=== PATIENT | female | born 1970 | race Caucasian/White ===

== ENCOUNTER 2018-09-06 10:07 | Inpatient (IN) | payer BC, SELFPAY ==
[2018-09-06 10:08] VITALS: BP 141/85; PULSE 79; RESP 16; TEMP 36.9; O2SAT 99; BMI 42.9
--- NOTE | 2018-09-06 10:25 | ED.DCSUM_ITS ---
- ER Visit Summary Date of Service: 09/06/18 Chief Complaint: Cat bite History of Present Illness: The patient is a 48 F who sustained a cat bite 3 days ago to the left middle finger. She was seen at an urgent care and was placed on Augmentin and topical Bactroban. She states that swelling and erythema are getting worse. She states that the redness is extending into her hand. She also complains of some pain in the left axilla. She denies any fevers. The cat bite wounds has some clear drainage coming out of it. Patient is a diabetic. Physical Examination: Vital signs reviewed. Left hand exam reveals erythema and swelling extending at the level hand from the third digit. There are multiple cat bite wounds on the radial and ulnar side of the finger. There is no tenderness to palpation of the flexor tendon. She does have some tenderness in the left axilla as well. Test Results: Laboratory studies are normal except for glucose of 175. Left hand x-ray reveals no foreign bodies Emergency Department Course and Treatment: Patient will be treated with IV Unasyn. I discussed this with Dr. Miller who states that she will see the patient in consult. If it is not better in the morning she will take the patient to the operating room. Patient will be made n.p.o. after midnight. Patient will be admitted to the hospitalist. Treatment Plan: [] Disposition: Admit Impression: Cat bite?left hand, left hand cellulitis, failure of outpatient therapy This note was generated with [employer] dictation software. It may contain incorrect words, spelling, and punctuation that were not noted in review of the chart prior to signing ED Disposition - Plan for ED Patient: Chief Complaint: Bite Referrals: Yamil Arreguin MD [Primary Care Provider] -
--- NOTE | 2018-09-06 10:47 | RAD_ITS ---
STUDY: X-RAY - LEFT HAND REASON FOR EXAM: Female, 48 years old. Pain status post cat bite TECHNIQUE: 3 view(s) of the hand. COMPARISON: None. FINDINGS: Normal radiocarpal articulation. Normal distal radioulnar joint. Normal visualized carpal bones. Normal carpal articulations Normal carpometacarpal articulation of the thumb. Normal second through fifth carpometacarpal joints. Normal metacarpi. Normal metacarpophalangeal joint of the thumb. Normal interphalangeal joint of the thumb. Normal proximal and distal phalanges of the thumb. Normal metacarpophalangeal joints of the second through fifth fingers. Normal proximal and distal interphalangeal joints of the second through fifth fingers. Normal phalanges of the second through fifth fingers. There is soft tissue edema about the second digit. On the AP view there is a subtle focus of lucency which may represent a puncture wound or 4 mm abscess. There is no visualized foreign body or fracture. RAD/Hand Min 3 Views IMPRESSION: Tissue edema AP view, subtle visualized puncture or 4 mm abscess or focal soft tissue swelling suggested on the lateral side of the proximal third digit. Cannot exclude small focal superficial abscess. Electronically Signed: Renetta Dinh MD at 11:45 EST Tel , Service support ,
[2018-09-06 10:48] LABS: Erythrocyte Sedimentation Rate 14 mm/hr (0-20)
[2018-09-06 10:50] LABS: Absolute Lymphocyte Count 1.71 X10^3/ul (0.83-4.51); Absolute Neutrophil Count 6.2 X10^3/uL (2.0-7.7); Basophil# 0.02 X10^3/uL; Basophil% 0.2 % (0-1); Eosinophil# 0.13 X10^3/uL; Eosinophils% 1.5 % (0-5); Hematocrit 39.9 % (37-47); Hemoglobin 12.5 g/dl (12.0-15.0); Lymphocyte # 1.71 X10^3/ul (4.0); Lymphocyte % 19.7 % (19-41); Mean Corp Hgb Conc 31.3 g/gl (32-36); Mean Corpuscular Hgb 26.2 pg (27.0-32.0); Mean Corpuscular Volume 83.6 fL (81-99); Mean Platelet Vol. 9.8 fl (6.2-12.0); Monocyte# 0.59 X10^3/uL; Monocyte% 6.8 % (0-10); Neutrophil % 71.6 % (47-70); Platelet Count 274 K/mm3 (150-450); RBC Distribution Width CV 14.4 % (11.6-14.6); RBC Distribution Width SD 44.4 fl (35.1-43.9); Red Blood Count 4.77 M/mm3 (4.2-5.4); White Blood Count 8.7 K/mm3 (4.4-11.0)
[2018-09-06 10:51] LABS: POSITIVE COUNT NO; POSITIVE DIFFERENTIAL NO; POSITIVE MORPHOLOGY NO
[2018-09-06 10:57] LABS: Anion Gap 6 (5-15); BUN 11 mg/dL (7-18); Calcium,Total 8.7 mg/dL (8.5-10.1); Chloride 107 mmol/L (98-107); Creatinine, Serum 0.65 mg/dL (0.55-1.02); EST Glomerular Filtration Rate 104 mL/min (>60); Est Glom Filt Rate - Afr Amer 126 mL/min (>60); Estimated Creatinine Clearance 83.71 ml/min; Glucose 175 mg/dL (74-106); Potassium 4.4 mmol/L (3.5-5.1); Sodium Level 141 mmol/L (136-145)
[2018-09-06 12:08] VITALS: BMI 43.6
[2018-09-06 12:17] VITALS: BP 152/92; PULSE 75; RESP 16; TEMP 36.7; O2SAT 100
[2018-09-06 13:06] LABS: Bedside Glucose 136 mg/dL (70-110)
[2018-09-06] MEDS: oxyCODONE 5 MG Tablet PO ×3 (13:32→19:03)
--- NOTE | 2018-09-06 13:46 | HP.PCM_ITS ---
Problem List (1) Type 2 diabetes mellitus Status: Chronic (2) Obesity Status: Chronic (3) Cat bite of hand Status: Acute History of Present Illness Date of Admission: 09/06/18 Chief Complaint: Cat bite left middle finger. The patient is a 48 year old F who presents to the Emergency Room due to cat bite of the left hand middle finger which occurred on Friday. Patient was seen at urgent care and placed on Augmentin and topical Bactroban. She reports increased swelling and erythema since that time. Patient reports a small amount of clear fluid draining from puncture sites. She denies fever, chills. She reports left axillary enlarged lymph node with tenderness which began after Bite. She reports she received her tetanus vaccination on Friday at urgent care. She reports significant pain in the left hand. Denies other associated complaints. She has a past medical history of type 2 diabetes mellitus. Past Medical History Past Medical History (Chronic Problems): Chronic Problems Type 2 diabetes mellitus (Chronic) Obesity (Chronic) Allergies codeine phosphate [From Tylenol-Codeine #3] Allergy (Verified 09/06/18 10:12) Hives progesterone Allergy (Verified 09/06/18 10:12) Hives Home Medications: Ambulatory Orders Medication Instructions Recorded Metformin HCl [Glucophage] 500 mg PO BIDCM 12/04/15 Amox/Clavulanate Tablet [Augmentin 875 mg PO Q12H 09/06/18 Tablet] Mupirocin [Bactroban] 1 applic TOPICAL TID 09/06/18 Sitagliptin Phosphate [Januvia] 100 mg PO QHS 09/06/18 Surgical History: - - Tonsillectomy, Lasik eye surgery, septoplasty. Lives: With Family Smoking Status: Never smoker Alcohol: None Drugs: None - *Family History Maternal History Items: - - following seven-year jones with cancer including renal, lymphoma. Paternal History Items: - - Denies known paternal cardiac history. Review of Systems Constitutional: Denies: Chills, Fever, Weight Change HEENT: Denies: Head Aches, Sinus Congestion, Sinus Drainage Cardiovascular: Denies: Chest Pain, Palpitations Respiratory: Denies: Cough, Shortness of breath at rest, Sputum production Gastrointestinal: Denies: Abdominal Pain, Nausea, Vomiting Genitourinary: Denies: Dysuria Musculoskeletal: Denies: Joint Pain, Joint Tenderness Skin: Reports: - - Left hand middle finger wounds. Neurological: Denies: Numbness, Tingling, Focal weakness Psychiatric: Denies: Anxiety, Depression, Homicidal Ideations, Suicidal Ideations Hematologic/ Lymphatic: Denies: Easy Bruising, Easy Bleeding VTE Information - Inpt Only VTE Present on Admission: No VTE Mechan Device Prophylaxis: None Reason prophylaxis not ordered:: Treatment Not Indicated Patient Problems: Active and Suspected Problems Cat bite of hand (Acute) - Physical Exam General: Alert, Oriented x3, Cooperative HEENT: Atraumatic, PERRLA, EOMI, Normocephalic Neck: Supple, No JVD, Negative Carotid Bruits Lungs: Clear to auscultation, Normal air movement Cardiovascular: Regular rate, Regular Rhythm, Normal S1, Normal S2, No murmurs Abdomen: Bowel Sounds Present, Soft, Non Tender, Non-Distended Extremities: No edema, Capillary Refill Less than 3 Seconds, - - Enlarged lymph node left axillary Skin: - - Left hand middle finger with puncture wounds x2 and abrasions secondary to cat bite. Surrounding erythema. Musculoskeletal: No Tenderness to Palpation of Joints or Extremities Neurological: Cranial nerves II-XII grossly intact Psych/Mental Status: Normal Affect, Appropriate Vital Signs Temp Pulse Resp BP Pulse Ox 98.1 F 75 16 152/92 H 100 09/06/18 12:17 09/06/18 12:17 09/06/18 12:17 09/06/18 12:17 09/06/18 12:17 Oxygen Delivery Method Room Air Weight: 238 lb 6 oz Body Mass Index (BMI) 43.6 Laboratory Tests Past 24 Hrs 09/06/18 09/06/18 10:41 10:41 WBC 8.7 RBC 4.77 Hgb 12.5 Hct 39.9 MCV 83.6 MCH 26.2 L MCHC 31.3 L RDW 14.4 RDW Differential 44.4 H Plt Count 274 MPV 9.8 Immature Gran % (Auto) 0.200 Neut % (Auto) 71.6 H Lymph % (Auto) 19.7 [place] % (Auto) 6.8 Eos % (Auto) 1.5 Baso % (Auto) 0.2 Absolute Neuts (auto) 6.2 Absolute Lymphs (auto) 1.71 Total Counted Not Reportable ESR 14 Sodium 141 Potassium 4.4 Chloride 107 Carbon Dioxide 28.0 Anion Gap 6 BUN 11 Creatinine 0.65 Estim Creat Clear Calc 83.71 Est GFR (MDRD) Af Amer 126 Est GFR (MDRD) Non-Af 104 BUN/Creatinine Ratio 17.0 Glucose 175 H Calcium 8.7 POC Glucose 09/06/18 12:53 POC Glucose 136 H Assessment/Plan All Active Problems Cat bite of hand (Acute) 1. Left hand cellulitis due to cat bite of the left hand middle finger, failed outpatient antibiotic therapy with [id number] left hand showed tissue edema, some double puncture or 4 mm abscess versus soft tissue swelling on the lateral side of the proximal third digit. Cannot exclude small superficial abscess. Dr. Ramirez consulted. NPO after midnight. IV Unasyn. PRN pain regimen. Patient reports she did receive her tetanus booster at urgent care on Friday. Elevate LUE. 2. Type 2 diabetes mellitus-hold home metformin, Januvia, pioglitazone regimen. Accu-Cheks before meals at bedtime with sliding scale insulin. 3. Obesity-encouraged diet lifestyle medications. 4. Elevated blood pressure-systolic 140-150 on admission. Continue to monitor. DVT prophylaxis- not indicated, low risk. This patient was seen by Lorena Arauz NP-Esau under the supervision of Dr. Gee.
[2018-09-06] MEDS: Insulin Lispro 100 UNIT/ML INSULN.PEN SC ×2 (17:17→21:30)
[2018-09-06 17:20] LABS: Bedside Glucose 195 mg/dL (70-110)
--- NOTE | 2018-09-06 18:07 | NURSING ---
Pt did become nauseated around 1700 when she got up to the bathroom. She did vomit in the trash can while using the bathroom. Obtained order for Zofran for pt if needed.
[2018-09-06] MEDS: Ondansetron 4 MG/2 ML Vial IV (19:25)
[2018-09-06 21:40] VITALS: BP 126/71; PULSE 87; RESP 18; TEMP 36.7; O2SAT 98
[2018-09-06] MEDS: 0.9% Normal Saline 1,000 ML 100 ML IV (23:54)
[2018-09-07 00:26] LABS: Bedside Glucose 220 mg/dL (70-110)
[2018-09-07] MEDS: Acetaminophen 325 MG Tablet 650 MG PO ×2 (01:16→08:45)
[2018-09-07 01:25] VITALS: BP 128/80; PULSE 77; RESP 18; TEMP 36.3; O2SAT 98
[2018-09-07] MEDS: Insulin Lispro 100 UNIT/ML INSULN.PEN SC (05:59)
[2018-09-07 06:06] LABS: Bedside Glucose 170 mg/dL (70-110)
[2018-09-07 06:10] LABS: Absolute Lymphocyte Count 2.06 X10^3/ul (0.83-4.51); Absolute Neutrophil Count 5.7 X10^3/uL (2.0-7.7); Basophil# 0.03 X10^3/uL; Basophil% 0.4 % (0-1); Eosinophil# 0.16 X10^3/uL; Eosinophils% 1.9 % (0-5); Hematocrit 39.7 % (37-47); Hemoglobin 12.5 g/dl (12.0-15.0); Lymphocyte # 2.06 X10^3/ul (4.0); Lymphocyte % 24.5 % (19-41); Mean Corp Hgb Conc 31.5 g/gl (32-36); Mean Corpuscular Hgb 26.6 pg (27.0-32.0); Mean Corpuscular Volume 84.5 fL (81-99); Mean Platelet Vol. 10.9 fl (6.2-12.0); Monocyte# 0.46 X10^3/uL; Monocyte% 5.5 % (0-10); Neutrophil # 5.69 X10^3/uL (2.7-7.7); Neutrophil % 67.5 % (47-70); Platelet Count 288 K/mm3 (150-450); RBC Distribution Width CV 14.5 % (11.6-14.6); White Blood Count 8.4 K/mm3 (4.4-11.0)
[2018-09-07 06:14] LABS: POSITIVE COUNT NO; POSITIVE DIFFERENTIAL NO; POSITIVE MORPHOLOGY NO
[2018-09-07 08:40] VITALS: BP 135/80; PULSE 75; RESP 18; TEMP 36.4; O2SAT 98
[2018-09-07] MEDS: 0.9% Normal Saline 1,000 ML 100 ML IV (08:48)
[2018-09-07 09:15] LABS: Hemoglobin A1c 8.3 % (4.2-6.3)
--- NOTE | 2018-09-07 09:44 | PN_ITS ---
Patient Problems: Active and Suspected Problems Cat bite of hand (Acute) Subjective: Patient seen and examined. Notes improvement in pain, swelling and erythema of left middle finger and hand. Denies fever, chills. Notes improvement in left axillary lymphadenopathy as well. - Physical Exam General: Alert, Oriented x3, Cooperative HEENT: Atraumatic, PERRLA, EOMI, Normocephalic Neck: Supple, No JVD, Negative Carotid Bruits Lungs: Clear to auscultation, Normal air movement Cardiovascular: Regular rate, Regular Rhythm, Normal S1, Normal S2, No murmurs Abdomen: Bowel Sounds Present, Soft, Non Tender Extremities: No clubbing, No cyanosis, No edema, Capillary Refill Less than 3 Seconds, - - Enlarged lymph node left axillary Skin: No rashes, No breakdown, - - Left hand middle finger with puncture wounds x2 and abrasions secondary to cat bite. Surrounding erythema improved. Musculoskeletal: No Tenderness to Palpation of Joints or Extremities Neurological: Cranial nerves II-XII grossly intact, Neuro grossly intact Psych/Mental Status: Normal Affect, Appropriate Vital Signs Temp Pulse Resp BP Pulse Ox 97.4 F L 77 18 128/80 H 98 09/07/18 01:25 09/07/18 01:25 09/07/18 01:25 09/07/18 01:25 09/07/18 01:25 Oxygen Delivery Method Room Air Weight: 238 lb 6 oz Body Mass Index (BMI) 43.6 Intake and Output for Last 24 Hours 09/05/18 09/06/18 09/07/18 23:59 23:59 23:59 Intake Total 1187 / 1187 631 / 631 Balance 1187 / 1187 631 / 631 Laboratory Tests Past 24 Hrs 09/06/18 09/06/18 09/07/18 10:41 10:41 05:42 WBC 8.7 8.4 RBC 4.77 4.70 Hgb 12.5 12.5 Hct 39.9 39.7 MCV 83.6 84.5 MCH 26.2 L 26.6 L MCHC 31.3 L 31.5 L RDW 14.4 14.5 RDW Differential 44.4 H 44.0 H Plt Count 274 288 MPV 9.8 10.9 Immature Gran % (Auto) 0.200 0.200 Neut % (Auto) 71.6 H 67.5 Lymph % (Auto) 19.7 24.5 [place] % (Auto) 6.8 5.5 Eos % (Auto) 1.5 1.9 Baso % (Auto) 0.2 0.4 Absolute Neuts (auto) 6.2 5.7 Absolute Lymphs (auto) 1.71 2.06 Total Counted Not Reportable Not Reportable ESR 14 Sodium 141 Potassium 4.4 Chloride 107 Carbon Dioxide 28.0 Anion Gap 6 BUN 11 Creatinine 0.65 Estim Creat Clear Calc 83.71 Est GFR (MDRD) Af Amer 126 Est GFR (MDRD) Non-Af 104 BUN/Creatinine Ratio 17.0 Glucose 175 H Hemoglobin A1c Calcium 8.7 09/07/18 05:42 WBC RBC Hgb Hct MCV MCH MCHC RDW RDW Differential Plt Count MPV Immature Gran % (Auto) Neut % (Auto) Lymph % (Auto) [place] % (Auto) Eos % (Auto) Baso % (Auto) Absolute Neuts (auto) Absolute Lymphs (auto) Total Counted ESR Sodium Potassium Chloride Carbon Dioxide Anion Gap BUN Creatinine Estim Creat Clear Calc Est GFR (MDRD) Af Amer Est GFR (MDRD) Non-Af BUN/Creatinine Ratio Glucose Hemoglobin A1c 8.3 H Calcium POC Glucose 09/07/18 09/06/18 09/06/18 05:58 21:27 17:03 POC Glucose 170 H 220 H 195 H 09/06/18 12:53 POC Glucose 136 H Medical Necessity - Tobacco Use Smoking Status: Never smoker Assessment/Plan All Active Problems Cat bite of hand (Acute) 1. Left hand cellulitis due to cat bite of the left hand middle finger, failed outpatient antibiotic therapy with [id number] left hand showed tissue edema, some double puncture or 4 mm abscess versus soft tissue swelling on the lateral side of the proximal third digit. Cannot exclude small superficial abscess. No abscess is felt on examination. Dr. Ramirez consulted, pending. IV Unasyn. PRN pain regimen. Patient reports she did receive her tetanus booster at urgent care on Friday. Elevate LUE. 2. Type 2 diabetes mellitus-hold home metformin, Januvia, pioglitazone regimen. Accu-Cheks before meals at bedtime with sliding scale insulin. 3. Obesity-encouraged diet lifestyle medications. 4. Elevated blood pressure-suspect secondary to pain on admission. Resolved. DVT prophylaxis- not indicated, low risk. This patient was seen by MACY Reece under the supervision of Dr. Villarreal.
--- NOTE | 2018-09-07 09:56 | PCM.CONS.GEN ---
Reason for Consult Date of Consultation: 09/07/18 Reason for Consultation: left hand cat bite History of Present Illness: The patient is a 48 year old F with cat bite ast Friday, she was placed on Augmentin but she is noted that her finger today has become more swollen and painful and she came to the ER. Labs showed a normal white blood cell count. X-ray of the left hand showed tissue edema and a subtle visualized puncture. Pt admitted, overnight IV antibiotics and seen this am. States much improved this am, can bend middle finger with minimal discomfort, although not completely, denies other pain in other joints. states swelling under ipsilateral armpit from lymph node- internal medicine aware. [] Past Medical History Past Medical History (Chronic Problems): Chronic Problems Type 2 diabetes mellitus (Chronic) Obesity (Chronic) Allergies codeine phosphate [From Tylenol-Codeine #3] Allergy (Verified 09/06/18 10:12) Hives progesterone Allergy (Verified 09/06/18 10:12) Hives Home Medications: Ambulatory Orders Medication Instructions Recorded Metformin HCl [Glucophage] 500 mg PO BIDCM 12/04/15 Amox/Clavulanate Tablet [Augmentin 875 mg PO Q12H 09/06/18 Tablet] Mupirocin [Bactroban] 1 applic TOPICAL TID 09/06/18 Pioglitazone HCl 45 mg PO DAILY 09/06/18 Pioglitazone [Actos] 45 mg PO DAILY 09/06/18 Sitagliptin Phosphate [Januvia] 100 mg PO QHS 09/06/18 Surgical History: - - Tonsillectomy, Lasik eye surgery, septoplasty. Lives: With Family Smoking Status: Never smoker Alcohol: None Drugs: None - *Family History Maternal History Items: - - following seven-year jones with cancer including renal, lymphoma. Paternal History Items: - - Denies known paternal cardiac history. Review of Systems Constitutional: Denies: Chills, Fever, Weight Change HEENT: Denies: Head Aches, Sinus Congestion, Sinus Drainage Cardiovascular: Denies: Chest Pain, Palpitations Respiratory: Denies: Cough, Shortness of breath at rest, Sputum production Gastrointestinal: Denies: Abdominal Pain, Nausea, Vomiting Genitourinary: Denies: Dysuria Musculoskeletal: Reports: Hand Pain. Denies: Joint Pain, Joint Tenderness Skin: Denies: Rash, Wounds Neurological: Denies: Numbness, Tingling, Focal weakness Psychiatric: Denies: Anxiety, Depression, Homicidal Ideations, Suicidal Ideations Hematologic/ Lymphatic: Denies: Easy Bruising, Easy Bleeding Patient Problems: Active and Suspected Problems Cat bite of hand (Acute) - Physical Exam General: Alert, Oriented x3, Cooperative HEENT: Atraumatic, PERRLA, EOMI, Normocephalic Neck: Supple, No JVD, Negative Carotid Bruits Lungs: Clear to auscultation, Normal air movement Cardiovascular: Regular rate, No murmurs Abdomen: Bowel Sounds Present, Soft, Non Tender Extremities: No edema, Capillary Refill Less than 3 Seconds Skin: No rashes, No breakdown Musculoskeletal: Tenderness - decreased erythema (marked out yesterday rhiannon), increased ROM middle finger, no fluctuence, 2 bite scott with scabs slight erythema Neurological: Cranial nerves II-XII grossly intact Psych/Mental Status: Normal Affect, Appropriate Vital Signs Temp Pulse Resp BP Pulse Ox 97.4 F L 77 18 128/80 H 98 09/07/18 01:25 09/07/18 01:25 09/07/18 01:25 09/07/18 01:25 09/07/18 01:25 Oxygen Delivery Method Room Air Weight: 238 lb 6 oz Body Mass Index (BMI) 43.6 Intake and Output for Last 24 Hours 09/05/18 09/06/18 09/07/18 23:59 23:59 23:59 Intake Total 1187 / 1187 631 / 631 Balance 1187 / 1187 631 / 631 Laboratory Tests Past 24 Hrs 09/06/18 09/06/18 09/07/18 10:41 10:41 05:42 WBC 8.7 8.4 RBC 4.77 4.70 Hgb 12.5 12.5 Hct 39.9 39.7 MCV 83.6 84.5 MCH 26.2 L 26.6 L MCHC 31.3 L 31.5 L RDW 14.4 14.5 RDW Differential 44.4 H 44.0 H Plt Count 274 288 MPV 9.8 10.9 Immature Gran % (Auto) 0.200 0.200 Neut % (Auto) 71.6 H 67.5 Lymph % (Auto) 19.7 24.5 [place] % (Auto) 6.8 5.5 Eos % (Auto) 1.5 1.9 Baso % (Auto) 0.2 0.4 Absolute Neuts (auto) 6.2 5.7 Absolute Lymphs (auto) 1.71 2.06 Total Counted Not Reportable Not Reportable ESR 14 Sodium 141 Potassium 4.4 Chloride 107 Carbon Dioxide 28.0 Anion Gap 6 BUN 11 Creatinine 0.65 Estim Creat Clear Calc 83.71 Est GFR (MDRD) Af Amer 126 Est GFR (MDRD) Non-Af 104 BUN/Creatinine Ratio 17.0 Glucose 175 H Hemoglobin A1c Calcium 8.7 09/07/18 05:42 WBC RBC Hgb Hct MCV MCH MCHC RDW RDW Differential Plt Count MPV Immature Gran % (Auto) Neut % (Auto) Lymph % (Auto) [place] % (Auto) Eos % (Auto) Baso % (Auto) Absolute Neuts (auto) Absolute Lymphs (auto) Total Counted ESR Sodium Potassium Chloride Carbon Dioxide Anion Gap BUN Creatinine Estim Creat Clear Calc Est GFR (MDRD) Af Amer Est GFR (MDRD) Non-Af BUN/Creatinine Ratio Glucose Hemoglobin A1c 8.3 H Calcium POC Glucose 09/07/18 09/06/18 09/06/18 05:58 21:27 17:03 POC Glucose 170 H 220 H 195 H 09/06/18 12:53 POC Glucose 136 H Assessment/Plan All Active Problems Cat bite of hand (Acute) left middle finger cat bite improved on unasyn no fluctuence on exam, clinically significantly improved- based on markings from yesterdays cellulitis and patient has good ROM no need for surgery today, may eat discussed if sites of bite themselves worsen, may need intervention in the future, but at this time clinically improved and surgery not indicated follow up as outpatient one week call [facility] [phone]
--- NOTE | 2018-09-07 10:14 | DCINST_ITS ---
- Discharge Diagnoses Current Active Problems: Current Active and Chronic Problems Type 2 diabetes mellitus (Chronic) Obesity (Chronic) Cat bite of hand (Acute) You will use the following diet at home:: Calorie/Carbohydrate Controlled (specify 1200, 1400, etc) - 1800 calories/day Your food should be the consistency of: Regular Your liquids should be the consistency of: Regular/Thin Discharge Activity: Return to Normal Activity Return to work on:: 09/10/18 Keep extremity elevated above heart level: Left Arm Call your doctor if your incision/area has: Continuous Slow Oozing, Increased Pain/ Swelling, Increased Redness Call your doctor if you observe: Fever of 101 or Higher Allergies/Adverse Reactions: Allergies codeine phosphate [From Tylenol-Codeine #3] Allergy (Verified 09/06/18 10:12) Hives progesterone Allergy (Verified 09/06/18 10:12) Hives Medications to take at Discharge Metformin HCl [Glucophage] 500 mg PO BIDCM 12/04/15 Amox/Clavulanate Tablet [Augmentin Tablet] 875 mg PO Q12H 09/06/18 Mupirocin [Bactroban] 1 applic TOPICAL TID 09/06/18 Pioglitazone HCl 45 mg PO DAILY 09/06/18 Pioglitazone [Actos] 45 mg PO DAILY 09/06/18 Sitagliptin Phosphate [Januvia] 100 mg PO QHS 09/06/18 Oxycodone [Oxyir] 5 mg PO Q6H PRN 2 Days #8 tablet 09/07/18 The following prescriptions were given: Oxycodone [Oxyir] 5 mg PO Q6H PRN 2 Days #8 tablet PRN Reason: Mod-Severe Pain (4-07/08) Primary Care Physician: Yamil Arreguin MD [Primary Care Provider] - Within 1 Week Test Results: Test results from this visit will be discussed in further detail at your follow- up appointment, if applicable. Proposed Discharge Date: 09/07/18
--- NOTE | 2018-09-07 10:15 | PCM.WORK.EX ---
Work/School Excuse Work/School Excuse for:: Patient Please excuse this person from:: Work From: 09/06/18 through: 09/10/18
--- NOTE | 2018-09-07 10:15 | PCM.DC.SUM ---
Discharge Date and Diagnosis - Problem List Patient Problems: Active and Suspected Problems Cellulitis of left hand (Acute) Cat bite of hand (Acute) Date of Admission: 09/06/18 Date of Discharge: 09/07/18 - Primary Discharge Diagnosis Active and Suspected Problems Cellulitis of left hand (Acute) Cat bite of hand (Acute) - Secondary Discharge Diagnosis Chronic Problems Type 2 diabetes mellitus (Chronic) Obesity (Chronic) Hospital Course and Treatment Imaging Results: Clinical Impression(s) from Imaging Studies Hand X-Ray 09/06/18 10:47 IMPRESSION: Tissue edema AP view, subtle visualized puncture or 4 mm abscess or focal soft tissue swelling suggested on the lateral side of the proximal third digit. Cannot exclude small focal superficial abscess. Electronically Signed: Renetta Dinh MD at 11:45 EST Tel , Service support , DO [facility] Orthopaedics. Operations: None Procedures: None Summary of Care Provided: The patient is a 48 year old F who sustained a cat bite on her hand on the seventh. Went to urgent care and started on Augmentin. Though the hand got more swollen and painful. Presented to the emergency room and diagnosed with left hand cellulitis likely due to cat bite. An x-ray that showed tissue edema and subtle visualized puncture or 4 mm abscess. Patient was seen in consultation by orthopedics today who did not feel any fluctuance and nor any indication for surgery. Patient was on Unasyn while she was here. Patient's edema has much improved as well. Patient still does have some pain on her third digit on her left hand but no surgical intervention necessary. Patient will be told to resume her Augmentin to complete the course of antibiotics and to keep her arm elevated. Patient will be instructed to use stay home from work for the next 48 hours to give that time to heal. [] Patient Problems: Active and Suspected Problems Cellulitis of left hand (Acute) Cat bite of hand (Acute) - Physical Exam General: Alert, Cooperative, No apparent distress HEENT: Atraumatic, Normocephalic Musculoskeletal: - - Tender palpation medial lateral aspect of the third finger on the left hand. Resolved erythema and edema. Decreased lymphadenopathy of the left axilla. Vital Signs Temp Pulse Resp BP Pulse Ox 36.4 C L 75 18 135/80 H 98 12/10/18 08:40 09/07/18 08:40 09/07/18 08:40 09/07/18 08:40 09/07/18 08:40 Oxygen Delivery Method Room Air Weight: 108.125 kg Body Mass Index (BMI) 43.6 Intake and Output for Last 24 Hours 09/05/18 09/06/18 09/07/18 23:59 23:59 23:59 Intake Total 1187 / 1187 631 / 631 Balance 1187 / 1187 631 / 631 Laboratory Tests Past 24 Hrs 09/06/18 09/06/18 09/07/18 10:41 10:41 05:42 WBC 8.7 8.4 RBC 4.77 4.70 Hgb 12.5 12.5 Hct 39.9 39.7 MCV 83.6 84.5 MCH 26.2 L 26.6 L MCHC 31.3 L 31.5 L RDW 14.4 14.5 RDW Differential 44.4 H 44.0 H Plt Count 274 288 MPV 9.8 10.9 Immature Gran % (Auto) 0.200 0.200 Neut % (Auto) 71.6 H 67.5 Lymph % (Auto) 19.7 24.5 [place] % (Auto) 6.8 5.5 Eos % (Auto) 1.5 1.9 Baso % (Auto) 0.2 0.4 Absolute Neuts (auto) 6.2 5.7 Absolute Lymphs (auto) 1.71 2.06 Total Counted Not Reportable Not Reportable ESR 14 Sodium 141 Potassium 4.4 Chloride 107 Carbon Dioxide 28.0 Anion Gap 6 BUN 11 Creatinine 0.65 Estim Creat Clear Calc 83.71 Est GFR (MDRD) Af Amer 126 Est GFR (MDRD) Non-Af 104 BUN/Creatinine Ratio 17.0 Glucose 175 H Hemoglobin A1c Calcium 8.7 09/07/18 05:42 WBC RBC Hgb Hct MCV MCH MCHC RDW RDW Differential Plt Count MPV Immature Gran % (Auto) Neut % (Auto) Lymph % (Auto) [place] % (Auto) Eos % (Auto) Baso % (Auto) Absolute Neuts (auto) Absolute Lymphs (auto) Total Counted ESR Sodium Potassium Chloride Carbon Dioxide Anion Gap BUN Creatinine Estim Creat Clear Calc Est GFR (MDRD) Af Amer Est GFR (MDRD) Non-Af BUN/Creatinine Ratio Glucose Hemoglobin A1c 8.3 H Calcium POC Glucose 09/07/18 09/06/18 09/06/18 05:58 21:27 17:03 POC Glucose 170 H 220 H 195 H 09/06/18 12:53 POC Glucose 136 H Discharge Diet: 1800 Calorie Control Diet Discharge Activity: Return to Normal Activity Return to work on:: 09/10/18 Keep extremity elevated above heart level: Left Arm Call your doctor if your incision/area has: Continuous Slow Oozing, Increased Pain/ Swelling, Increased Redness Call your doctor if you observe: Fever of 101 or Higher Home Medications: Medications to take at Discharge Metformin HCl [Glucophage] 500 mg PO BIDCM 12/04/15 Amox/Clavulanate Tablet [Augmentin Tablet] 875 mg PO Q12H 09/06/18 Mupirocin [Bactroban] 1 applic TOPICAL TID 09/06/18 Pioglitazone HCl 45 mg PO DAILY 09/06/18 Pioglitazone [Actos] 45 mg PO DAILY 09/06/18 Sitagliptin Phosphate [Januvia] 100 mg PO QHS 09/06/18 Oxycodone [Oxyir] 5 mg PO Q6H PRN 2 Days #8 tablet 09/07/18 Following Prescrptions Were Given to Patient: Oxycodone [Oxyir] 5 mg PO Q6H PRN 2 Days #8 tablet PRN Reason: Mod-Severe Pain (4-10/10) Primary Care Physician: Yamil Arreguin MD [Primary Care Provider] - Within 1 Week Disposition: Home Minutes spent on discharge:: 32 Patient Condition:: Good Medical Necessity - Tobacco Use Smoking Status: Never smoker Meaningful Use Info Meaningful Use Diagnoses (Choose all that apply): None applicable Code Visit OBSV E&M: 40940 Observation care discharge
== END 2018-09-07 11:37 | disposition home or self-care (01) | DRG 605 ==
LOC: ED 11:23 → MS3 09-07 07:12
PROVIDERS: Anesthesiology; Admitting Provider Internal Medicine; Emergency Provider Emergency Medicine; Family Provider Family Medicine; PCP Family Medicine
DX: S61.253A Open bite of left middle finger without damage to nail, initial encounter (principal); L03.114 Cellulitis of left upper limb; Z68.41 Body mass index [BMI] 40.0-44.9, adult; W55.01XA Bitten by cat, initial encounter; E11.9 Type 2 diabetes mellitus without complications; E66.9 Obesity, unspecified; Z79.84 Long term (current) use of oral hypoglycemic drugs; R59.0 Localized enlarged lymph nodes
CPT/HCPCS: 36415; 73130; 80048; 82962; 83036; 85025; 85652; 97110; 97802; 97803; 99282; J7030; J7050; A4216; J0295; J2405

== ENCOUNTER → 2019-12-16 16:25 | Outpatient (CLI) | payer OTHER, SELFPAY ==
[2018-09-15 15:20] VITALS: BMI 43.5
--- NOTE | 2019-12-16 17:17 | MRI_ITS ---
HISTORY: injury decreased rom unable to abduct arm EXAMINATION: MR Shoulder W/O Contrast TECHNIQUE: Multiplanar and multisequence MR images of the left shoulder. IV Contrast dosage and agent: None. 6 series. 140 images COMPARISON: None FINDINGS: BONE: No fracture or abnormal bone marrow signal. ACROMIOCLAVICULAR JOINT: There is minimal degenerative change with some fluid and hyperostosis SUBACROMIAL-SUBDELTOID SPACE: A tiny focus of bursal fluid is present inferior to the posterior aspect of the acromion GLENOHUMERAL JOINT: Articular cartilage is minimally thinned a small left shoulder effusion is present. Trace rotator interval edema ROTATOR CUFF: An undersurface incomplete thickness pedicular tear is present at the insertion of the supraspinatus with minimal tendinosis more proximally and medially within the supraspinatus tendon There is no cuff muscle atrophy. LABRUM: A Leandro complex is present. BICEPS TENDON: The extra-articular biceps tendon is in the bicipital groove. The intra-articular biceps tendon is normal. OTHER SOFT TISSUES: Unremarkable. MRI/Upper Ext Joint Only(Routine) IMPRESSION: Small shoulder effusion. Undersurface incomplete thickness rim rent tear to the supraspinatus with additional undersurface incomplete thickness tear into the supraspinatus. Tiny amount of fluid in the subacromial bursa. Normal anatomic variant Delmar complex. at 2150 Reported and signed by: Ezequiel Gonzalez MD Electronically Signed: Ezequiel Gonzalez MD at 21:49 EDT Tel , Service support ,
--- NOTE | 2019-12-16 17:18 | MRI_ITS ---
HISTORY: Injury. Unable to reach behind back pain. Patient sandwiched between door and wall. Findings: Sagittal axial and coronal T1 and T2 fat-sat series were obtained. No comparison x-rays of the left humerus. Findings: Bony alignment is normal. Marrow signal is normal. A small shoulder effusion is present. No soft tissue contusion is identified. No myofascial tearing is identified. No myofascial contusion is perceived. MRI/Upper Ext/No Jt/ wo IMPRESSION: No soft tissue, or muscular contusion perceived. No marrow edema or fracture identified. at 2113 Reported and signed by: Ezequiel Gonzalez MD Electronically Signed: Ezequiel Gonzalez MD at 21:12 EDT Tel , Service support ,
== END ==
PROVIDERS: PCP Family Medicine; Referring Provider Family Medicine; Visit Provider Family Medicine
DX: S43.402A Unspecified sprain of left shoulder joint, initial encounter (principal); X58.XXXA Exposure to other specified factors, initial encounter
CPT/HCPCS: 73218; 73221